=== PATIENT | male | born 1975 | race Asian ===

== ENCOUNTER 2017-11-24 14:02 | Emergency (ER) | payer OTHER ==
[~2017-11-24] VITALS: Ht 180.3 cm; Wt 125.4 kg
[2017-11-24 14:03] VITALS: BP 144/98
[2017-11-24] MEDS ORDERED: DIPH,PERTUSS(ACELL),TET VAC/PF 0.5 ML IM-VACC ONE ×2 (15:00→15:22)
[2017-11-24] MEDS ORDERED: LIDOCAINE 2%, 20ML SQ ONE (15:30)
[2017-11-24] MEDS ORDERED: UNKNOWN BP MED PO (15:40)
[2017-11-24] MEDS ORDERED: METF500T4 PO (15:40)
[2017-11-24] MEDS ORDERED: BACITRACIN ZINC OINT 500U/GM, 0.9 GM ONE (16:49)
== END 2017-11-24 17:06 | disposition home or self-care (01) ==
LOC: ED 17:00
DX: S61.215A Laceration without foreign body of left ring finger without damage to nail, initial encounter (principal); X58.XXXA Exposure to other specified factors, initial encounter; Y93.89 Activity, other specified; Y99.8 Other external cause status; Y92.009 Unspecified place in unspecified non-institutional (private) residence as the place of occurrence of the external cause
CPT/HCPCS: 12002; 90471; 90715